=== PATIENT | female | born 1995 | race Caucasian/White ===

== ENCOUNTER 2018-11-12 07:34 | Observation (INO) ==
[2018-11-12] MEDS ORDERED: Acetaminophen 325 MG TABLET PO ONE (09:07)
[2018-11-12 10:47] LABS: Amphetamine Screen,Urine Negative ng/mL (Cutoff=1000); Barbiturate Screen,Urine Negative ng/mL (Cutoff=200); Benzodiazepines Screen,Urine Negative ng/mL (Cutoff=200); Cannabinoid Screen,Urine Positive ng/mL (Cutoff = 50); Cocaine Screen,Urine Negative ng/mL (Cutoff= 300); Opiate Screen,Urine Negative ng/mL (Cutoff=300); Phencyclidine Screen,Urine Negative ng/mL (Cutoff=25)
== END 2018-11-12 09:48 | disposition home or self-care (01) ==
LOC: 1NENULAB
PROVIDERS: ADMIT Advanced Practice Midwife; ATTEND Advanced Practice Midwife

== ENCOUNTER 2019-01-16 22:57 | Inpatient (IN) ==
[2019-01-16] MEDS ORDERED: Ondansetron 4 MG/2 ML VIAL IVP PRN (22:59)
[2019-01-16] MEDS ORDERED: *HR* Nalbuphine 10 MG/ML AMPUL IVP PRN (22:59)
[2019-01-16] MEDS ORDERED: Lidocaine 1% 20 ML MDV INFILT PRN (22:59)
[2019-01-16] MEDS ORDERED: Famotidine 20 MG/2 ML VIAL IVP PRN (22:59)
[2019-01-16] MEDS ORDERED: Naloxone 0.4 MG/ML INJ IVP PRN (22:59)
[2019-01-16] MEDS ORDERED: Metoclopramide 10 MG/2 ML VIAL IVP PRN (22:59)
[2019-01-16] MEDS ORDERED: miSOPROStol 25 MCG TABLET VG PRN (23:01)
[2019-01-16] MEDS ORDERED: Ringers Solution, Lactated 1,000 ML ONE (23:14)
[2019-01-16 23:31] LABS: Basophils % 0.3 %; Eosinophils # 0.1 K/mcL (0.0-0.6); Eosinophils % 1.1 %; Hematocrit 38.1 % (35.3-44.9); Hemoglobin 13.3 g/dL (11.5-15.4); Immature Granulocytes % 0.5 % (0-4); Lymphocytes # 2.6 K/mcL (0.6-4.6); Lymphocytes % 19.4 %; Mean Corpuscular HGB Conc 34.9 g/dL (31.6-35.5); Mean Corpuscular Hemoglobin 29.4 pg (28.0-33.3); Mean Corpuscular Volume 84.3 fL (83.0-100.0); Mean Platelet Volume 11.4 fL (9.4-12.4); Monocytes # 1.6 K/mcL (0.0-1.3); Monocytes % 12.2 %; Neutrophils # 8.7 K/mcL (1.6-8.9); Platelet Count 193 K/mcL (140-400); Red Blood Count 4.52 M/mcL (3.82-4.97); Red Cell Distribution Width 13.3 % (11.5-14.5); Segmented Neutrophils % 66.5 %; White Blood Count 13.1 K/mcL (4.3-11.1)
[2019-01-16 23:43] LABS: Amphetamine Screen,Urine Negative ng/mL (Cutoff=1000); Barbiturate Screen,Urine Negative ng/mL (Cutoff=200); Benzodiazepines Screen,Urine Negative ng/mL (Cutoff=200); Cannabinoid Screen,Urine Positive ng/mL (Cutoff = 50); Cocaine Screen,Urine Negative ng/mL (Cutoff= 300); Opiate Screen,Urine Negative ng/mL (Cutoff=300); Phencyclidine Screen,Urine Negative ng/mL (Cutoff=25)
[2019-01-16] MEDS ORDERED: Ringers Solution, Lactated 1,000 ML IVC SCH (23:45)
[2019-01-16] MEDS ORDERED: Oxytocin 20 units/ LR 1000 mL 20 UNIT/1,000 ML BAG IVC SCH (23:45)
[2019-01-17] MEDS ORDERED: Ropivacaine/PF 0.2% 20 ML VIAL ONE (04:51)
[2019-01-17] MEDS ORDERED: Epidural Premix (fent/bupiv) 110 ML EP ONE (04:51)
[2019-01-17] MEDS ORDERED: *HR* FentaNYL (PF) 100 MCG/2 ML VIAL ONE (04:51)
[2019-01-17] MEDS ORDERED: EPHEDrine 50 MG/ML VIAL IVP PRN (05:23)
[2019-01-17] MEDS ORDERED: Epidural Premix (fent/bupiv) 110 ML EP SCH (05:30)
[2019-01-17] MEDS ORDERED: Oxytocin 20 units/ LR 1000 mL 20 UNIT/1,000 ML BAG IVC SCH (19:33)
[2019-01-17] MEDS ORDERED: Benzocaine/Menthol 56 GM AEROSOL SPRAY TP PRN (19:33)
[2019-01-17] MEDS ORDERED: Lanolin 7 G OINT...G. TP PRN (19:33)
[2019-01-17] MEDS ORDERED: Acetaminophen 325 MG TABLET PO PRN (19:33)
[2019-01-17] MEDS: Ibuprofen 600 MG TABLET PO PRN (20:47)
[2019-01-18 06:49] LABS: Basophils % 0.2 %; Eosinophils # 0.1 K/mcL (0.0-0.6); Eosinophils % 0.5 %; Hematocrit 32.7 % (35.3-44.9); Hemoglobin 11.6 g/dL (11.5-15.4); Immature Granulocytes % 0.8 % (0-4); Lymphocytes # 2.4 K/mcL (0.6-4.6); Lymphocytes % 14.2 %; Mean Corpuscular HGB Conc 35.5 g/dL (31.6-35.5); Mean Corpuscular Hemoglobin 29.3 pg (28.0-33.3); Mean Corpuscular Volume 82.6 fL (83.0-100.0); Monocytes # 1.7 K/mcL (0.0-1.3); Neutrophils # 12.7 K/mcL (1.6-8.9); Platelet Count 178 K/mcL (140-400); Red Blood Count 3.96 M/mcL (3.82-4.97); Red Cell Distribution Width 13.4 % (11.5-14.5); Segmented Neutrophils % 74.3 %; White Blood Count 17.1 K/mcL (4.3-11.1)
[2019-01-18] MEDS: Ibuprofen 600 MG TABLET PO PRN ×3 (07:23→20:42)
[2019-01-18] MEDS: Prenatal Vit/FA 1 EACH TABLET PO SCH (11:49)
[2019-01-19] MEDS: Ibuprofen 600 MG TABLET PO PRN ×2 (02:27→12:10)
[2019-01-19 08:10] VITALS: BP 114/78
[2019-01-19] MEDS: Prenatal Vit/FA 1 EACH TABLET PO SCH (12:11)
== END 2019-01-19 14:10 | disposition home or self-care (01) | DRG 560 ==
LOC: 1NENULAB 22:57 → 1NENUOBS 01-17 18:58
PROVIDERS: ADMIT Student in an Organized Health Care Education/Training Program; ATTEND Student in an Organized Health Care Education/Training Program